=== PATIENT | female | born 1950 | race American Indian/Alaskan Native ===

== ENCOUNTER 2017-04-18 18:53 | Emergency (ER) | payer OTHER ==
[2017-04-18 19:05] VITALS: BP 117/67
[2017-04-19] MEDS ORDERED: BOOSTRIX IM ONE
[2017-04-19] MEDS ORDERED: XYLOCAINE 1% MPF 5 mL INFILTRATI ONE
--- NOTE | 2017-04-19 00:05 | Emergency Department Report ---
HPI <EDWARDO BARR Roxanne - Last Filed: 04/19/17 01:45> - [facility] HPI: This is a 67 year-old female presents to the emergency department with complaint of pain and a laceration to the left lower leg after she accidentally hit it on a chair while walking. She denies falling down, hitting her head or any other injuries. She is unsure of her last tetanus booster. She has a history of borderline diabetes, hypertension, hyperlipidemia. She has a primary care physician for follow-up. She did not take anything for her symptoms prior presentation. <AMBER QUICK S - Last Filed: 04/19/17 03:48> - General Chief Complaint: Extremity Injury, Lower Time Seen by Provider: 04/18/17 23:59 ED Past Medical Hx - Past Medical History Previous Medical History?: Yes Hx Hypertension: Yes Hx Diabetes: Yes (boarderline) Additional medical history: heart disease,elevated cholesterol,blood clot - Surgical History Past Surgical History?: No Additional Surgical History: heart cath 2003 - Social History Smoking Status: Never Smoker Substance Use Type: Alcohol <AMBER QUICK Med - Last Filed: 04/19/17 03:48> ED Review of Systems ROS: Stated complaint: LACERATION LEFT LEG Other details as noted in HPI <EDWARDO BARR A - Last Filed: 04/19/17 01:45> ROS: Stated complaint: LACERATION LEFT LEG Other details as noted in HPI Comment: All other systems reviewed and negative Constitutional: denies: chills, fever Eyes: denies: eye pain, eye discharge, vision change ENT: denies: ear pain, throat pain Respiratory: denies: cough, shortness of breath, wheezing Cardiovascular: denies: chest pain, palpitations Gastrointestinal: denies: abdominal pain, nausea, diarrhea Genitourinary: denies: urgency, dysuria, discharge Musculoskeletal: arthralgia. denies: back pain Skin: other (laceration). denies: rash Neurological: denies: headache, weakness, paresthesias <AMBER QUICK - Last Filed: 04/19/17 03:48> Physical Exam - Physical Exam Vital Signs: Vital Signs 04/18/17 19:01 Temperature 98 F Pulse Rate 87 Respiratory 18 Rate Blood Pressure 117/67 O2 Sat by Pulse 98 Oximetry <CORTNEY,OYINLOLA A - Last Filed: 04/19/17 01:45> - Physical Exam Vital Signs: Vital Signs 04/18/17 19:01 Temperature 98 F Pulse Rate 87 Respiratory 18 Rate Blood Pressure 117/67 O2 Sat by Pulse 98 Oximetry Physical Exam: GENERAL: The patient is well-developed well-nourished. HENT: Normocephalic. Atraumatic. Patient has moist mucous membranes. EYES: Extraocular motions are intact. Pupils equal reactive to light bilaterally. NECK: Supple. Trachea is midline. CHEST/LUNGS: Clear to auscultation. There is no respiratory distress noted. HEART/CARDIOVASCULAR: Regular. There is no tachycardia. There is no murmur. ABDOMEN: Abdomen is soft, nontender. Patient has normal bowel sounds. There is no abdominal distention. SKIN: There is a laceration to the lateral left leg just superior to the ankle and is about 2.5 cm in length, superficial, linear with a 1 cm gap. There is some mild venous oozing. NEURO: The patient is awake, alert, and oriented. The patient is cooperative. The patient has no focal neurologic deficits. The patient has normal speech. MUSCULOSKELETAL: There is some tenderness palpation to the distal left lower extremity with patient has a laceration. There is no limitation range of motion. <AMBER QUICK S - Last Filed: 04/19/17 03:48> ED Course Vital Signs 04/18/17 19:01 Temperature 98 F Pulse Rate 87 Respiratory 18 Rate Blood Pressure 117/67 O2 Sat by Pulse 98 Oximetry <EDWARDO BARR A - Last Filed: 04/19/17 01:45> Vital Signs 04/18/17 19:01 Temperature 98 F Pulse Rate 87 Respiratory 18 Rate Blood Pressure 117/67 O2 Sat by Pulse 98 Oximetry <AMBER QUICK S - Last Filed: 04/19/17 03:48> - Laceration /Wound Repair Left Lower Lateral Distal Leg Wound Location: lower extremity Wound Length (cm): 4 Wound's Depth, Shape: superficial, linear Wound Explored: clean Irrigated w/ Saline (ccs): 200 Betadine Prep?: Yes Anesthesia: 1% Lidocaine Volume Anesthetic (ccs): 5 Wound Repaired With: sutures Suture Size/Type: 3:0, proline Number of Sutures: 8 Layer Closure?: No Sterile Dressing Applied?: Yes <EDWARDO BARR Last Filed: 04/19/17 01:45> ED Medical Decision Making - Radiology Data Radiology results: report reviewed, image reviewed FINAL REPORT EXAM: XR TIBIA FIBULA 2V LT HISTORY: leg laceration TECHNIQUE: Four views of the left tibia-fibula were submitted. FINDINGS: There is localized soft tissue swelling overlying the lateral aspect of the distal calf. There is no evidence of fracture or radiopaque foreign body. The knee joint reveals patellar spurring superiorly. In the ankle there are spurs along the posterior and plantar margin of the calcaneus. IMPRESSION: Localized soft tissue swelling overlying the lateral aspect of the distal calf. No evidence of fracture or foreign body. Degenerative spurring as described. Transcribed By: RB Dictated By: AL BOYKIN MD Electronically Authenticated By: AL BOYKIN MD Signed Date/Time: 04/18/172031 - Medical Decision Making 67-year-old female presents with lower leg laceration status post fall. The 4-5 laceration wound was prepped and draped in sterile fashion. Anesthesia was achieved with 5mL of 1% lidocaine. The wound was irrigated with 200cc NS and explored. There were no foreign bodies The wound was reapproximated in 1 layer with 8 sutures suing with 3-0 monofilament sutures in the dermis with interrupted sutures percutaneously. There was excellent reapproximation of the wound edges. The patient tolerated the procedure without complication <EDWARDO BARR - Last Filed: 04/19/17 01:45> - Medical Decision Making Patient presents with a laceration to her left leg after she accidentally hit it on a chair and seen by myself within the emergency department. It caused a laceration but otherwise no obvious deformity. X-ray was done that did not show any foreign body or any fracture or dislocation. Tetanus booster was updated. The mid-level provider was gracious enough to repair the laceration. Vital signs stable. The patient will be discharged home to follow up with a primary care physician and understands that the sutures will need to be removed in about 7 days. We discussed monitoring for infection. She will return to the ER with any worsening of her symptoms or any acute distress. - Differential Diagnosis laceration, contusion, fracture <AMBER QUICK - Last Filed: 04/19/17 03:48> Critical care attestation.: If time is entered above; I have spent that time in minutes in the direct care of this critically ill patient, excluding procedure time. <Verenice BARRPETE A - Last Filed: 04/19/17 01:45> Critical Care Time: No Critical care attestation.: If time is entered above; I have spent that time in minutes in the direct care of this critically ill patient, excluding procedure time. <AMBER QUICK S - Last Filed: 04/19/17 03:48> ED Disposition <CORTNEYEDWARDO A - Last Filed: 04/19/17 01:45> Is pt being admited?: No <AMBER QUICK S - Last Filed: 04/19/17 03:48> Clinical Impression: Laceration of left leg Qualifiers: Encounter type: initial encounter Qualified Code(s): S81.812A - Laceration without foreign body, left lower leg, initial encounter Leg pain Qualifiers: Laterality: left Qualified Code(s): M79.605 - Pain in left leg Disposition: DC-01 TO HOME OR SELFCARE Condition: Stable Instructions: Suture Care (ED), Laceration (ED) Additional Instructions: These follow-up with a primary care physician in the next few days. The sutures will need to be removed in about 7 days. However you should be seen sooner with any signs or symptoms of infection such as surrounding redness or discharge of pus. Keep the area clean and dry but it can be cleaned with soap and water. Return to the emergency Department with any worsening of her symptoms or any acute distress. Referrals: PRIMARY CARE, [Primary Care Provider] - 3-5 Days
--- NOTE | 2017-04-19 00:35 | XRay Report ---
FINAL REPORT EXAM: XR TIBIA FIBULA 2V LT HISTORY: leg laceration TECHNIQUE: Four views of the left tibia-fibula were submitted. FINDINGS: There is localized soft tissue swelling overlying the lateral aspect of the distal calf. There is no evidence of fracture or radiopaque foreign body. The knee joint reveals patellar spurring superiorly. In the ankle there are spurs along the posterior and plantar margin of the calcaneus. IMPRESSION: Localized soft tissue swelling overlying the lateral aspect of the distal calf. No evidence of fracture or foreign body. Degenerative spurring as described.
[2017-04-19] MEDS ORDERED: TRIPLE ANTIBIOTIC TP ONE ×2 (01:27→01:30)
== END 2017-04-19 02:11 | disposition home or self-care (01) ==
LOC: ED 18:53
DX: S81.812A Laceration without foreign body, left lower leg, initial encounter (principal); E11.9 Type 2 diabetes mellitus without complications; E78.00 Pure hypercholesterolemia, unspecified; W22.8XXA Striking against or struck by other objects, initial encounter; Y93.89 Activity, other specified; Y92.89 Other specified places as the place of occurrence of the external cause; Y99.8 Other external cause status
CPT/HCPCS: 90471; 90715; A6250